=== PATIENT | male | born 1970 | race Caucasian/White ===

== ENCOUNTER 2020-11-11 01:16 | Emergency (ER) | payer OTHER ==
[~2020-11-11] VITALS: Ht 180.3 cm; Wt 88.9 kg
[~2020-11-11 01:16] MED LIST: CLEOCIN HCL300 MG PO; NAPROSYN500 MG PO
[2020-11-11 03:20] LABS: HEMOGLOBIN 13.8 gm/dl (14.0-17.5); RED BLOOD COUNT 4.79 M/UL (4.20-5.50); WHITE BLOOD COUNT 13.5 K/UL (4.5-11.0)
[2020-11-11 03:48] LABS: BUN/CREATININE RATIO 14 (0-10)
[2020-11-11] MEDS ORDERED: CATAPRES 0.1MG0.1 MG PO (19:33)
[2020-11-11] MEDS ORDERED: SUBOXONE 8 MG-1 EACH SL (19:33)
[2020-11-11] MEDS ORDERED: PHENERGAN 25 MG25 M1 PO (19:35)
[2020-11-11] MEDS ORDERED: BENTYL 20MG TAB20 MG PO (19:35)
[2020-11-12 04:07] LABS: HEMOGLOBIN 14.8 gm/dl (14.0-17.5); RED BLOOD COUNT 5.12 M/UL (4.20-5.50); WHITE BLOOD COUNT 11.7 K/UL (4.5-11.0)
[2020-11-12 04:32] LABS: BUN/CREATININE RATIO 8 (0-10)
[2020-11-13 05:12] LABS: HEMOGLOBIN 14.8 gm/dl (14.0-17.5); RED BLOOD COUNT 5.18 M/UL (4.20-5.50); WHITE BLOOD COUNT 13.7 K/UL (4.5-11.0)
[2020-11-13 05:31] LABS: BUN/CREATININE RATIO 12 (0-10)
== END 2020-11-13 16:40 | disposition other institution (70) ==
LOC: ER1 01:16
PROVIDERS: Emergency Medicine; Internal Medicine
DX: E27.49 Other adrenocortical insufficiency (principal); I25.10 Atherosclerotic heart disease of native coronary artery without angina pectoris; E78.5 Hyperlipidemia, unspecified; I25.2 Old myocardial infarction; I11.9 Hypertensive heart disease without heart failure; F17.210 Nicotine dependence, cigarettes, uncomplicated
CPT/HCPCS: 70450; 71045; 71250; 71260; 80053; 80202; 81001; 82533; 82550; 82553; 83605; 83690; 83735; 83880; 84100; 84484; 85025; 85027; 87040; 87086; 93005; 96372; 96374; 96375; 96376; 99285; J0360; J1170; J2270; J2405; J3370; J7030; J7070; Q9965; Q9967